=== PATIENT | female | born 1960 | race Caucasian/White ===

== ENCOUNTER 2023-04-02 11:23 | Emergency (ER) | payer BC ==
[~2023-04-02] VITALS: Ht 160 cm; Wt 53.0 kg
[2023-04-02] MEDS ORDERED: fentaNYL/PF 50MCG/1 ML 2ML syringe IV ONE ×2 (12:25→14:20)
[2023-04-02] MEDS ORDERED: ondansetron/PF 4mg/2ml inj IV ONE (12:25)
[2023-04-02 13:43] VITALS: BP 133/77; PULSE 56; O2SAT 95
[2023-04-02] MEDS ORDERED: HYDR-3965 PO (14:32)
[2023-04-02 14:47] VITALS: RESP 18
== END 2023-04-02 15:15 | disposition home or self-care (01) ==
LOC: ER 11:24
DX: S52.531A Colles' fracture of right radius, initial encounter for closed fracture (principal); S52.614A Nondisplaced fracture of right ulna styloid process, initial encounter for closed fracture; Z88.8 Allergy status to other drugs, medicaments and biological substances; W01.0XXA Fall on same level from slipping, tripping and stumbling without subsequent striking against object, initial encounter; Y93.89 Activity, other specified; Y92.89 Other specified places as the place of occurrence of the external cause; Y99.8 Other external cause status
CPT/HCPCS: 29125; 73090; 73110; 73200; 96374; 96375; 96376; 99285; J2405; J3010; 96368